=== PATIENT | female | born 1985 | race Caucasian/White ===

== ENCOUNTER 2017-08-16 14:26 | Emergency (ER) | payer OTHER ==
[~2017-08-16] VITALS: Ht 165.1 cm; Wt 66.7 kg
[~2017-08-16 14:26] MED LIST: AMOX1TAB12 PO; MOTRIN800 MG PO; PYRIDIUM200 MG PO; SMZ-TMP DS 800-1 TAB PO; TUSSI PRES-B L120 M1 PO; TYLENOL EXTRA500 MG PO; ULTRAM50 MG PO
== END 2017-08-16 20:38 | disposition home or self-care (01) ==
LOC: ER 14:26
DX: K29.70 Gastritis, unspecified, without bleeding (principal)

== ENCOUNTER 2017-10-02 00:47 | Emergency (ER) | payer OTHER ==
[~2017-10-02] VITALS: Ht 167.6 cm; Wt 65.8 kg
[2017-10-02] MEDS ORDERED: ZANTAC300 MG PO (06:47)
[2017-10-02] MEDS ORDERED: PROTONIX40 MG PO (06:47)
[2017-10-02] MEDS ORDERED: CARAFATE1 GM/10 ML PO (06:47)
== END 2017-10-02 07:20 | disposition home or self-care (01) ==
LOC: ER 00:47
DX: K29.70 Gastritis, unspecified, without bleeding (principal)

== ENCOUNTER 2019-05-09 09:30 | Emergency (ER) | payer OTHER ==
[~2019-05-09] VITALS: Ht 165.1 cm; Wt 69.9 kg
[~2019-05-09 09:30] MED LIST changes: +CARAFATE1 GM/10 ML PO; +PROTONIX40 MG PO; +ZANTAC300 MG PO
== END 2019-05-09 16:07 | disposition home or self-care (01) ==
LOC: ER 09:30
DX: K52.9 Noninfective gastroenteritis and colitis, unspecified (principal)

== ENCOUNTER 2020-08-25 15:33 | Emergency (ER) | payer OTHER ==
[~2020-08-25] VITALS: Ht 165.1 cm; Wt 71.7 kg
[2020-08-25] MEDS ORDERED: NIZORAL SHAMPO120 ML TOP (16:59)
[2020-08-25] MEDS ORDERED: CLOTRIMAZOLE-BE15 G1 TOP (16:59)
[2020-08-25] MEDS ORDERED: KETOCONAZOLE15 GM TOP (16:59)
[2020-08-25] MEDS ORDERED: VISTARIL50 MG PO (17:11)
== END 2020-08-25 17:39 | disposition home or self-care (01) ==
LOC: ER 15:33
DX: B35.4 Tinea corporis (principal)

== ENCOUNTER 2022-07-30 09:13 | Emergency (ER) | payer OTHER ==
[~2022-07-30] VITALS: Ht 165.1 cm; Wt 66.7 kg
[~2022-07-30 09:13] MED LIST changes: +CLOTRIMAZOLE-BE15 G1 TOP; +KETOCONAZOLE15 GM TOP; +NIZORAL SHAMPO120 ML TOP; +VISTARIL50 MG PO
== END 2022-07-30 12:42 | disposition home or self-care (01) ==
LOC: ER 09:13
DX: N93.8 Other specified abnormal uterine and vaginal bleeding (principal)

== ENCOUNTER 2023-12-30 09:38 | Emergency (ER) | payer OTHER ==
[~2023-12-30] VITALS: Ht 162.6 cm; Wt 63.5 kg
[2023-12-30 10:03] VITALS: BP 121/68; O2SAT 100
[2023-12-30] MEDS ORDERED: KETOROLAC TROMETHAMINE 60 MG VIAL IM ONE (10:30)
[2023-12-30] MEDS ORDERED: DICLOFENAC SODI75 MG PO (11:04)
== END 2023-12-30 11:30 | disposition home or self-care (01) ==
LOC: ER 09:39
DX: M25.561 Pain in right knee (principal)